=== PATIENT | female | born 2000 | race Hispanic/Latino ===

== ENCOUNTER 2021-11-26 21:20 | Emergency (ER) | payer SELFPAY ==
[~2021-11-26] VITALS: Ht 154.9 cm; Wt 104.3 kg
[2021-11-26] MEDS ORDERED: IBUPROFEN 400 MG TAB PO STA (21:39)
[2021-11-26] MEDS ORDERED: IBUPROFEN 400 MG TAB ONE (21:52)
== END 2021-11-26 23:50 | disposition home or self-care (01) ==
LOC: ER 21:26
DX: J22 Unspecified acute lower respiratory infection (principal); Z88.8 Allergy status to other drugs, medicaments and biological substances; Z20.822 Contact with and (suspected) exposure to COVID-19
CPT/HCPCS: 71045; 83518; 87070; 99283; U0002